=== PATIENT | female | born 1990 | race Two or more races ===

== ENCOUNTER 2024-10-20 08:42 | Emergency (ER) | payer MEDICAID, OTHER ==
[~2024-10-20] VITALS: Ht 154.9 cm; Wt 87.6 kg
[2024-10-20 08:55] VITALS: TEMP 98.5
[2024-10-20 09:04] VITALS: BP 124/82; PULSE 93; RESP 16; O2SAT 100
--- NOTE | 2024-10-20 09:17 | ED.PDOC ---
Musculoskeletal HPI Comments 34 year old female presents to the ED with chief complaint of right shoulder pain. Patient reports that she has been experiencing right shoulder pain since she had helped her potato picker a bunk bed, accidentally twisting her right shoulder 2 days ago. Patient relays that her pain was mild for the first day, but it has increased in pain and now she is unable to move her right arm without pain. Patient states her LMP was in July and she is . Patient denies any numbness, weakness, dislocation, chest pain, or fall. Chief Complaint: Upper Extremity Time Seen by MD: 09:13 Reviewed Notes: Nurses Notes, Medications, Allergies Allergies: Coded Allergies: NO KNOWN ALLERGIES (Unverified , 10/20/24) Information Source: Patient Mode of Arrival: Ambulatory Location: Right Extremity Location: Shoulder Timing: Days Prehospital treatment: None Severity: Moderate Able to Move Extremity: No Bear Weight: Fully Pain: Moderate Mechanism: Twisting Circumstances: Accident Onset of Symptoms: Spontaneous Symptoms: Pain DVT Risk Factors: NONE Last Tetanus: UTD Past Medical History PAST MEDICAL HISTORY: Denies Surgical History: Denies all surgeries NEWSPAPER PEDDLER History: No Pertinent NEWSPAPER PEDDLER History Family History Family History: Reviewed,noncontributory to illness Social History Smoker: Non-Smoker Alcohol: Denies ETOH Use Drugs: Denies Drug Use Lives In: Home Constitutional: denies: chills, diaphoresis, fatigue, fever, malaise, sweats, weakness, others EENTM: denies: blurred vision, double vision, ear bleeding, ear discharge, ear drainage, ear pain, ear ringing, eye pain, eye redness, hearing loss, mouth pain, mouth swelling, nasal discharge, nose bleeding, nose congestion, nose pain, photophobia, tearing, throat pain, throat swelling, voice changes, others Respiratory: denies: cough, hemoptysis, orthopnea, SOB at rest, shortness of breath, SOB with excertion, stridor, wheezing, others Cardiovascular: denies: chest pain, dizzy spells, diaphoresis, Dyspnea on exertion, edema, irregular heart beat, left arm pain, lightheadedness, palpitations, PND, syncope, others Gastrointestinal: denies: abdomen distended, abdominal pain, blood streaked bowels, constipated, diarrhea, dysphagia, difficulty swallowing, hematemesis, melena, nausea, poor appetite, poor fluid intake, rectal bleeding, rectal pain, vomiting, others Genitourinary: denies: abnormal vagina bleeding, burning, dyspareunia, dysuria, flank pain, frequency, hematuria, incontinence, pain, , vagina discharge, urgency, others Neurological: denies: dizziness, fainting, headache, left sided numbness, left sided weakness, numbness, paresthesia, pre-existing deficit, right sided numbness, right sided weakness, seizure, speech problems, tingling, tremors, weakness, others Musculoskeletal: reports: others (Rt shoulder pain); denies: back pain, gout, joint pain, joint swelling, muscle pain, muscle stiffness, neck pain Integumetry: denies: bruises, change in color, change in hair/nails, dryness, laceration, lesions, lumps, rash, wounds, others Allergic/Immunocompromised: denies: Difficulty Healing, Frequent Infections, Hives, Itching, others Hematologic/Lymphatic: denies: anemia, blood clots, easy bleeding, easy bruising, swollen glands, others Endocrine: denies: excessive hunger, excessive sweating, excessive thirst, excessive urination, flushing, intolerance to cold, intolerance to heat, unexplained weight gain, unexplained weight loss, others Psychiatric: denies: anxiety, bipolar disorder, depression, hopeless, panic disorder, schizophrenia, sleepless, suicidal, others All Other Systems: Reviewed and Negative Physical Exam General Appearance: Moderate Distress, Normal HEENT: Normal ENT Inspection, PERRL/EOMI Neck: Full Range of Motion, Non-Tender, Normal, Normal Inspection Respiratory: Chest Non-Tender, Lungs Clear, No Accessory Muscle Use, No Respiratory Distress, Normal Breath Sounds Cardiovascular: No Edema, No JVD, No Murmur, No Gallop, Normal Peripheral Pulses, Regular Rate/Rhythm Breast Exam: Deferred Gastrointestinal: No Organomegaly, Non Tender, No Pulsatile Mass, Normal Bowel Sounds, Soft Genitalia: Deferred Pelvic: Deferred Rectal: Deferred Extremities: Decreased range of motion (Right upper extremity), No calf tenderness, Normal capillary refill, Non-tender, No pedal edema Musculoskeletal : Apperance: Normal Neurologic: Alert, coiled tubing operator II-XII nml as Tested, No Motor Deficits, Normal Affect, Normal Mood, No Sensory Deficits Cerebellar Function: Normal Reflexes: Normal Skin: Dry, Normal Color, Warm Peripheral Pulses: 3+ Radial (R), 3+ Radial (L) Lymphatic: No Adenopathy Was a procedure done? Was a procedure done?: No Differential Diagnosis EXT Differential Diagnosis: Sprain, Strain X-Ray, Labs, Meds, VS Vital Signs Date Time Temp Pulse Resp B/P (MAP) Pulse Ox O2 Delivery O2 Flow Rate FiO2 10/20/24 09:04 98.5 93 16 124/82 (96) 100 10/20/24 08:55 98.5 93 16 124/82 (96) 100 98.5 10/20/24 08:55 93 16 100 Room Air Lab Test 10/20/24 09:01 Range/Units Urine Test Negative Negative Patient alert. Complaining of right upper extremity pain. Vitals stable. Answering all questions. Explained to the patient. Was told to follow up with her primary care physician. Was told to come back if there is any problem. Time of 1ST Reevaluation: 10:13 Reevaluation 1ST: Unchanged Patient Education/Counseling: Diagnosis, Treatment Family Education/Counseling: No Family Present Departure 1 Departure Time of Disposition: 09:24 Impression: Primary Impression: Muscle strain Disposition: 01 HOME / SELF CARE / HOMELESS Condition: Good Discharged With: Self Critical Care Note Critical Care Time?: No Stability Stability form required: No Heart Score Heart Score: Heart Score Response (Comments) Value History N/A 0 EKG N/A 0 Age N/A 0 Risk Factors N/A 0 Troponin N/A 0 Total 0 I personally scribed for BRIANNE ABDI MD ([email or web address]) on 10/20/24 at 09:17. Electronically submitted by Kevin Arrington ([email or web address]). BRIANNE ABDI MD Oct 20, 2024 09:17
--- NOTE | 2024-10-20 11:11 | DVH ---
EXAM: XY R SHOULDER 2+ VIEW XRAY HISTORY: liftingpain COMPARISON: None TECHNIQUE: Four views of the right shoulder were performed. FINDINGS: No acute fracture or dislocation are identified about the right shoulder. No significant loss of sub acromial space. There are calcifications of the rotator cuff. IMPRESSION: 1. No fracture of the right shoulder. 2. Calcific rotator cuff tendinopathy.
[2024-10-20] MEDS: HYDROcodone-ACET 5/325MG TAB PO ONE (11:29)
== END 2024-10-20 11:37 | disposition home or self-care (01) ==
LOC: ER 08:42
DX: S46.811A Strain of other muscles, fascia and tendons at shoulder and upper arm level, right arm, initial encounter (principal); Z32.02 Encounter for pregnancy test, result negative; X50.0XXA Overexertion from strenuous movement or load, initial encounter; Y93.89 Activity, other specified; Y92.89 Other specified places as the place of occurrence of the external cause; Y99.8 Other external cause status
CPT/HCPCS: 73030; 81025

== ENCOUNTER 2025-01-22 21:31 | Emergency (ER) | payer MEDICAID ==
[~2025-01-22] VITALS: Ht 154.9 cm; Wt 86.9 kg
--- NOTE | 2025-01-22 21:50 | ED.PDOC ---
HPI Comments 34 y/o obese F presents with c/o chest pain, arrhythmia, intermittent shortness of breath, dizziness, lightheadedness, nausea, and vomiting for 2 weeks. Patient is a poor historian. She endorses on pain being localized in her sternum, nonradiating, 6/10 in severity, and pressure-like in quality. Describes also her "heart skipping a beat" sensation and feeling as if she's going to "pass out," lately. Reports remote history of arrhythmia diagnosis when she was in high school along with appendectomy. Denies any abdominal pain, blood in her vomit, fever, chills, or further associated symptoms. Time Seen by MD: 21:40 Reviewed Notes: Nurses Notes, Medications, Allergies Allergies: Coded Allergies: NO KNOWN ALLERGIES (Unverified , 10/20/24) Information Source: Patient Mode of Arrival: Ambulatory Severity: Moderate Timing: Weeks Past Medical History Past Medical History (Other): arrhythmia Surgical History: Appendectomy FAILURE ANALYSIS TECHNICIAN History: No Pertinent FAILURE ANALYSIS TECHNICIAN History Family History Family History: Reviewed,noncontributory to illness Social History Smoker: Non-Smoker Alcohol: Denies ETOH Use Drugs: Denies Drug Use Lives In: Home All Other Systems: Reviewed and Negative (as per HPI) Physical Exam General Appearance: Mild Distress, Obese HEENT: Normal ENT Inspection, Pharynx Normal, TMs Normal Neck: Full Range of Motion, Non-Tender, Normal, Normal Inspection Respiratory: Chest Non-Tender, Lungs Clear, No Accessory Muscle Use, No Respiratory Distress, Normal Breath Sounds Cardiovascular: No Edema, No JVD, No Murmur, No Gallop, Normal Peripheral Pulses, Tachycardia, Other (regular rhythm ) Breast Exam: Deferred Gastrointestinal: No Organomegaly, Non Tender, No Pulsatile Mass, Normal Bowel Sounds, Soft Genitalia: Deferred Pelvic: Deferred Rectal: Deferred Extremities: No calf tenderness, Normal capillary refill, Normal inspection, Normal range of motion, Non-tender, No pedal edema Musculoskeletal : Apperance: Normal Neurologic: Alert, customs consultant II-XII nml as Tested, No Motor Deficits, Normal Affect, Normal Mood, No Sensory Deficits Cerebellar Function: Normal Reflexes: Normal Skin: Dry, Normal Color, Warm Lymphatic: No Adenopathy EKG EKG : Pulse Rate (adult): 106 [place]: Normal Cardiac Rhythm: ST Block: None Hypertrophy: None ST: Normal Was a procedure done? Was a procedure done?: No CP Differential Dx Differential Diagnosis: Angina, Anxiety / Panic Attack, Electrolyte Disorder, [place], Pulmonary Embolus, Sinus Tachycardia Differential Diagnosis: Angina, Chest Wall Pain, Costochondritis, Esophageal reflux/spasm, Gastritis, Myocardial Infarction, Pericarditis, Pneumonia, Pulmonary Embolus, Other (electrolyte imbalance, dehydration ) X-Ray, Labs, Meds, VS Vital Signs Date Time Temp Pulse Resp B/P (MAP) Pulse Ox O2 Delivery O2 Flow Rate FiO2 01/22/25 22:33 82 01/22/25 21:58 98.4 89 18 125/86 (99) 98 98.4 01/22/25 21:50 106 01/22/25 21:36 106 Lab Test 01/22/25 22:41 01/22/25 21:40 Range/Units Troponin I High Sensitivity < 3 L < 3 L </=34 ng/L White Blood Count 8.7 4.4-10.8 10^3/uL Red Blood Count 5.02 4.0-5.20 10^6/uL Hemoglobin 14.4 12.2-16.2 g/dL Hematocrit 43.2 36.0-46.0 % Mean Corpuscular Volume 86.0 80.0-100.0 fL Mean Corpuscular Hemoglobin 28.6 28.0-32.0 pg Mean Corpuscular Hemoglobin Concent 33.3 32.0-36.0 g/dL Red Cell Distribution Width 13.5 11.8-14.3 % Platelet Count 396 140-450 10^3/uL Mean Platelet Volume 7.4 6.9-10.8 fL Neutrophils (%) (Auto) 52.0 37.0-80.0 % Lymphocytes (%) (Auto) 36.5 10.0-50.0 % Monocytes (%) (Auto) 7.9 0.0-12.0 % Eosinophils (%) (Auto) 2.8 0.0-7.0 % Basophils (%) (Auto) 0.8 0.0-2.0 % Neutrophils # (Auto) 4.5 1.6-8.6 10 ^3/uL Lymphocytes # (Auto) 3.2 0.4-5.4 10 ^3/uL Monocytes # (Auto) 0.7 0-1.3 10 ^3/uL Eosinophils # (Auto) 0.2 0-0.8 10 ^3/uL Basophils # (Auto) 0.1 0-0.2 10 ^3/uL Nucleated Red Blood Cells 0.2 % D-Dimer, Quantitative < 0.19 0.0-0.49 mg/L FEU Sodium Level 140 136-145 mmol/L Potassium Level 3.6 3.5-5.1 mmol/L Chloride Level 105 98-107 mmol/L Carbon Dioxide Level 26 20-31 mmol/L Anion Gap 9 5-15 Blood Urea Nitrogen 17 9-23 mg/dL Creatinine 0.85 0.550-1.02 mg/dL Glomerular Filtration Rate Calc 93 >90 mL/min BUN/Creatinine Ratio 20.0 10.0-20.0 Serum Glucose 120 H 74-106 mg/dL Calcium Level 10.0 8.7-10.4 mg/dL Total Bilirubin 0.3 0.2-1.0 mg/dL Aspartate Amino Transferase (AST) 28 13-40 U/L Alanine Aminotransferase (ALT) 42 H 7-40 U/L Alkaline Phosphatase 85 46-116 U/L Total Protein 8.0 5.7-8.2 g/dL Albumin 5.0 H 3.2-4.8 g/dL Beta HCG, Quantitative 0.6 L 1.5-4.2 mIU/mL [place] [id number] Ph: [phone] DIAGNOSTIC IMAGING Diagnostic Imaging Report : [id number] Signed PATIENT: ANNE-MARIE MCNEILL ACCT: [id number] UNIT: [id number] : 1990 LOC: ER ROOM / BED: / AGE / SEX: 34 / F ADM STATUS: REG ER SERVICE 22 ORDERING PHYSICIAN: HANNAH HUNT MD PROCEDURE(s): CXRP - CHEST PORTABLE REASON: CHEST PAIN ORDER NUMBER(s): [id number], ACCESSION NUMBER(s): [id number] CHEST RADIOGRAPH Indication: CHEST PAIN Technique: Single frontal view of the chest was obtained Comparison: None FINDINGS: Lines and Tubes: None Lungs: Clear Pleura: No effusion. No pneumothorax. Cardiomediastinal contours: Unremarkable Bones: Unremarkable IMPRESSION: Clear lungs. ATED BY: YOANA EVERETT DO DICTATED DATE/TIME: 01/22/252245 SIGNED BY: YOANA EVERETT DO SIGNED DATE/TIME: 01/22/252245 CC: Time of 1ST Reevaluation: 22:10 Reevaluation 1ST: Unchanged Patient Education/Counseling: Diagnosis, Treatment Family Education/Counseling: No Family Present Departure 1 Departure Time of Disposition: 00:28 Impression: Primary Impression: Atypical chest pain Additional Impressions: Dizziness Nausea and vomiting Disposition: 01 HOME / SELF CARE / HOMELESS Condition: Stable Critical Care Note Critical Care Time?: No Stability Stability form required: No Heart Score Heart Score: Heart Score Response (Comments) Value History Slightly Suspicious 0 EKG Normal 0 Age <45 0 Risk Factors 1 or 2 risk factors 1 Troponin Normal limit 0 Total 1 I personally scribed for HANNAH HUNT MD ([email or web address]) on 01/22/25 at 21:50. Electronically submitted by Mian Barraza ([email or web address]). I personally scribed for HANNAH HUNT MD ([email or web address]) on 01/22/25 at 23:04. Electronically submitted by Mian Barraza ([email or web address]). I personally scribed for HANNAH HUNT MD ([email or web address]) on 01/23/25 at 00:17. Electronically submitted by Mian Barraza ([email or web address]). HANNAH HUNT MD Jan 22, 2025 21:50
[2025-01-22 21:57] LABS: Basophils # (auto) 0.1 10 ^3/uL (0-0.2); Basophils % (auto) 0.8 % (0.0-2.0); Eosinophils # (auto) 0.2 10 ^3/uL (0-0.8); Eosinophils % (auto) 2.8 % (0.0-7.0); Hematocrit 43.2 % (36.0-46.0); Hemoglobin 14.4 g/dL (12.2-16.2); Lymphocytes # (auto) 3.2 10 ^3/uL (0.4-5.4); Lymphocytes % (auto) 36.5 % (10.0-50.0); Mean Corpuscular Hemoglobin 28.6 pg (28.0-32.0); Mean Corpuscular Hgb Conc. 33.3 g/dL (32.0-36.0); Monocytes # (auto) 0.7 10 ^3/uL (0-1.3); Monocytes % (auto) 7.9 % (0.0-12.0); Neutrophils # (auto) 4.5 10 ^3/uL (1.6-8.6); Nucleated Red Blood Cells % 0.2 %; Platelet Count (auto) 396 10^3/uL (140-450); Red Blood Cells 5.02 10^6/uL (4.0-5.20); Red Cell Distribution Width 13.5 % (11.8-14.3); White Blood Cell 8.7 10^3/uL (4.4-10.8)
[2025-01-22 22:16] LABS: Alkaline Phosphatase 85 U/L (46-116); Anion Gap 9 (5-15); Aspartate Aminotransferase 28 U/L (13-40); Bilirubin, Total 0.3 mg/dL (0.2-1.0); Blood Urea Nitrogen 17 mg/dL (9-23); Carbon Dioxide 26 mmol/L (20-31); Chloride 105 mmol/L (98-107); Potassium 3.6 mmol/L (3.5-5.1); Sodium 140 mmol/L (136-145)
[2025-01-22 22:22] LABS: Alanine Aminotransferase 42 U/L (7-40); Glucose 120 mg/dL (74-106)
--- NOTE | 2025-01-22 22:34 | ECG ---
[facility] Test Date: 2025-01-22 Test Time: 22:33:05 Pat Name: ANNE-MARIE MCNEILL Department: ED Room: Gender: F Solutions Delivery Consultant: DENISSE : 1990 Requested By: HANNAH HUNT Order Number: [id number] Reading MD: Martir Landon Measurements Intervals [place] Rate: 82 P: 64 FL: 142 QRS: 73 QRSD: 73 T: -23 QT: 359 QTc: 420 Interpretive Statements Sinus rhythm Borderline repolarization abnormality Electronically Signed On 01-25-2025 17:06:26 PDT by Martir Landon Please click the below link to view image of tracing.
--- NOTE | 2025-01-22 22:48 | DVH ---
CHEST RADIOGRAPH Indication: CHEST PAIN Technique: Single frontal view of the chest was obtained Comparison: None FINDINGS: Lines and Tubes: None Lungs: Clear Pleura: No effusion. No pneumothorax. Cardiomediastinal contours: Unremarkable Bones: Unremarkable IMPRESSION: Clear lungs.
[2025-01-23 01:01] VITALS: BP 115/71; PULSE 73; RESP 18; TEMP 98.7; O2SAT 98
--- NOTE | 2025-01-23 12:01 | ECG ---
[facility] Test Date: 2025-01-22 Test Time: 21:36:45 Pat Name: ANNE-MARIE MCNEILL Department: ER Room: Gender: F Network Applications Specialist: : 1990 Requested By: HANNAH HUNT Order Number: [id number] Reading MD: Martir Landon Measurements Intervals [place] Rate: 106 P: 70 ID: [id number] QRS: 71 QRSD: 71 T: -19 QT: 328 QTc: 436 Interpretive Statements Sinus tachycardia Borderline repolarization abnormality Electronically Signed On 01-25-2025 17:06:23 PDT by Martir Landon Please click the below link to view image of tracing.
== END 2025-01-23 01:01 | disposition home or self-care (01) ==
LOC: ER 21:31
DX: R07.89 Other chest pain (principal); R10.2 Pelvic and perineal pain; R42 Dizziness and giddiness; R11.2 Nausea with vomiting, unspecified; R06.02 Shortness of breath; E66.9 Obesity, unspecified; Z90.49 Acquired absence of other specified parts of digestive tract
CPT/HCPCS: 36415; 71045; 80053; 84484; 84702; 85025; 85379; 93005

== ENCOUNTER 2025-06-18 12:41 | Emergency (ER) | payer MEDICAID, SELFPAY ==
[~2025-06-18] VITALS: Ht 154.9 cm; Wt 87.5 kg
--- NOTE | 2025-06-18 13:47 | ED.PDOC ---
Eye-HPI HPI Comments A 34 YEAR OLD FEMALE PRESENTS TO THE ED WITH COMPLAINT OF LEFT EAR PAIN AND DENTAL PAIN. PATIENT STATES SHE HAS BEEN EXPERIENCING DENTAL PAIN ON THE LEFT LOWER SIDE OF HER MOUTH FOR THE PAST 3 WEEKS AND BEGAN TO EXPERIENCE LEFT EAR PAIN OVER THE PAST 3 DAYS. PATIENT DENIES FEVER, CHILLS, SHORTNESS OF BREATH, CHEST PAIN, ABDOMINAL PAIN, NAUSEA, VOMITING, HEADACHE, OR OTHER COMPLAINTS. NO OTHER SYMPTOMS OR MODIFYING FACTORS AT THIS TIME. PATIENT IS ALERT, ORIENTED X 4, AND HAS STEADY GAIT. Chief Complaint: Flu like Time Seen by MD: 12:53 Primary Care Provider: NONE Reviewed Notes: Nurses Notes, Medications, Allergies Allergies: Coded Allergies: NO KNOWN ALLERGIES (Unverified , 10/20/24) Home Meds Active Scripts Ibuprofen (Ibuprofen) 800 Mg Tab, 1 TAB PO TID, #24 TAB Prov:EDIL MUÑIZ 06/18/25 Prednisone (Prednisone) 20 Mg Tab, 60 MG PO DAILY, #15 TAB Prov:EDIL MUÑIZ 06/18/25 Amoxicillin & Pot Clavulanate (AUGMENTIN TABLET) 875 Mg Tb, 875 MG PO BID for 10 Days, #20 TAB Prov:EDIL MUÑIZ 06/18/25 Information Source: Patient Mode of Arrival: Ambulatory Timing: Days Duration: Since onset, Days Prehospital treatment: None Quality: Pain, Red Lids: Normal Conjunctiva: Normal Cornea: Normal Pupils: Normal EOM: Normal Fundus: Normal Slit lamp exam: Normal Anterior chamber: Normal Mouth Location: Left, Lower, Tooth/Teeth, Gums Mouth: Left, Lower, Normal ENT Ear Exam: Normal, Red, Bulging, Dull, Normal Nose: Normal Sinuses: Normal Oropharynx: Normal Onset: Spontaneous Throat Exposed to: None History of: None Last Tetanus: Unknown Modifying factors: Nothing Associated signs and symptoms: Ear Pain, Tooth Pain Past Medical History PAST MEDICAL HISTORY: Anxiety Surgical History: Appendectomy MOTIVATIONAL SPEAKER History: No Pertinent MOTIVATIONAL SPEAKER History Family History Family History: Reviewed,noncontributory to illness Social History Smoker: Non-Smoker Alcohol: Denies ETOH Use Drugs: Denies Drug Use Lives In: Home Constitutional: denies: chills, diaphoresis, fatigue, fever, malaise, sweats, weakness, others EENTM: reports: ear pain (LEFT EAR PAIN), mouth pain (LEFT LOWER DENTAL PAIN); denies: blurred vision, double vision, ear bleeding, ear discharge, ear drainage, ear ringing, eye pain, eye redness, hearing loss, mouth swelling, na bk discharge, nose bleeding, nose congestion, nose pain, photophobia, tearing, throat pain, throat swelling, voice changes, others Respiratory: denies: cough, hemoptysis, orthopnea, SOB at rest, shortness of breath, SOB with excertion, stridor, wheezing, others Cardiovascular: denies: chest pain, dizzy spells, diaphoresis, Dyspnea on exe rtion, edema, irregular heart beat, left arm pain, lightheadedness, palpitations, PND, syncope, others Gastrointestinal: denies: abdomen distended, abdominal pain, blood streaked bowels, constipated, diarrhea, dysphagia, difficulty swallowing, hematemesis, melena, nausea, poor appetite, poor fluid intake, rectal bleeding, rectal pain, vomiting, others Genitourinary: denies: abnormal vagina bleeding, burning, dyspareunia, dysuria, flank pain, frequency, hematuria, incontinence, pain, , vagina discharge, urgency, others Neurological: denies: dizziness, fainting, headache, left sided numbness, left sided weakness, numbness, paresthesia, pre-existing deficit, right sided numbness, right sided weakness, seizure, speech problems, tingling, tremors, weakness, others Musculoskeletal: denies: back pain, gout, joint pain, joint swelling, muscle pain, muscle stiffness, neck pain, others Integumetry: denies: bruises, change in color, change in hair/nails, dryness, laceration, lesions, lumps, rash, wounds, others Allergic/Immunocompromised: denies: Difficulty Healing, Frequent Infections, Hives, Itching, others Hematologic/Lymphatic: denies: anemia, blood clots, easy bleeding, easy bruising, swollen glands, others Endocrine: denies: excessive hunger, excessive sweating, excessive thirst, excessive urination, flushing, intolerance to cold, intolerance to heat, unexplained weight gain, unexplained weight loss, others Psychiatric: denies: anxiety, bipolar disorder, depression, hopeless, panic disorder, schizophrenia, sleepless, suicidal, others All Other Systems: Reviewed and Negative Physical Exam General Appearance: No Apparent Distress, Obese HEENT: PERRL/EOMI, Pharynx Normal, TM Abnormal (L) (ERYTHEMA AND DULL WITH MILD EFFUSION OF LEFT TM, NO BLEEDING AND BLOOD CLOTS. ), Other (ERYTHEMA AND SWELLING ON LEFT LOWER GUM AROUND TOOTH, NO FACIAL SWELLING. ) Neck: Full Range of Motion, Non-Tender, Normal, Normal Inspection Respiratory: Chest Non-Tender, Lungs Clear, No Accessory Muscle Use, No Respiratory Distress, Normal Breath Sounds Cardiovascular: No Edema, No JVD, No Murmur, No Gallop, Normal Peripheral Pulses, Regular Rate/Rhythm Breast Exam: Deferred Gastrointestinal: No Organomegaly, Non Tender, No Pulsatile Mass, Normal Bowel Sounds, Soft Genitalia: Deferred Pelvic: Deferred Rectal: Deferred Extremities: No calf tenderness, Normal capillary refill, Normal inspection, Normal range of motion, Non-tender, No pedal edema Musculoskeletal : Apperance: Normal Neurologic: Alert, supervisor shuttle fitting II-XII nml as Tested, No Motor Deficits, Normal Affect, Normal Mood, No Sensory Deficits Cerebellar Function: Normal Reflexes: Normal Skin: Dry, Normal Color, Warm Peripheral Pulses: 2+ carotid (R), 2+ carotid (L) Lymphatic: No Adenopathy Was a procedure done? Was a procedure done?: No EENT DIFF Eye: N/A Ear: Cerumen Impaction, Otitis Externa, Otitis Media, Dental, Pharyngitis, Sinusitis Nose: N/A Mouth: N/A Sore Throat: N/A X-Ray, Labs, Meds, VS Vital Signs Date Time Temp Pulse Resp B/P (MAP) Pulse Ox O2 Delivery O2 Flow Rate FiO2 06/18/25 12:42 98.2 77 16 121/63 100 98.2 Current Medications Medications (Trade) Dose Ordered Sig/Vanda Route Start Time Stop Time Status Last Admin Acetaminophen/ Hydrocodone Bitart (Aptos 10/325MG Tab) 1 tab ONCE ONCE PO 06/18/25 13:45 06/18/25 13:46 DC 06/18/25 13:50 X-Ray, Labs, Meds, VS Comment EXTERNAL MEDICAL RECORDS REVIEWED: [NONE] INDEPENDENT HISTORIANS: [NONE] SOCIAL DETERMINANTS OF HEALTH: [NONE] LABS ORDERED: NONE REVIEWED AND INTERPRETED RESULTS: NONE IMAGING ORDERED: NONE TREATMENTS ORDERED: NORCO 5/325MG PO PROCEDURES PERFORMED: NONE CRITICAL CARE TIME: NONE I HAVE DISCUSSED THE PATIENT WITH THE ATTENDING PHYSICIAN DR. ABDI AND HE AGREES WITH THE PATIENT'S PLAN OF CARE AND DISPOSITION. BASED ON HISTORY OF PRESENT ILLNESS, AND PHYSICAL EXAM, PATIENT WILL BE DISCHARGED HOME. DISCUSSED PLAN FOR DISCHARGE HOME WITH RX [AUGMENTIN, PREDNISO NE, AND IBUPROFEN 800 MG]. MEDICATION WARNINGS GIVEN. SHARED DECISION MAKING: PATIENT INSTRUCTED TO FOLLOW UP WITH PRIMARY CARE PROVIDER IN 1-2 DAYS FOR RE-EVALUATION OF SYMPTOMS. PATIENT VERBALIZES UNDERSTANDING TO RETURN TO ED FOR NEW OR WORSENING SYMPTOMS OR IF FOLLOW UP WITH PCP CANNOT BE OBTAINED. PATIENT FEELS COMFORTABLE GOING HOME AT THIS TIME. ALL QUESTIONS ADDRESSED AT TIME OF DISCHARGE. Time of 1ST Reevaluation: 14:20 Reevaluation 1ST: Improved Patient Education/Counseling: Diagnosis, Treatment, Need For Follow Up Family Education/Counseling: Diagnosis, Treatment, Need For Follow Up Medical Screening: No EMC Exist At This Time SEPSIS Sepsis Screen Date sepsis recognized/suspect: Jun 18, 2025 Time Sepsis recognized/suspect: 1245 Recent Procedure: No On Antibiotic Therapy: No Respiratory Rate >20: No Heart Rate >90: No Temp<36 C (96.8 F) or >38.3 C: No SBP <90 or MAP <65 mmHG: No New Acute Mental Status Change: No Is the patient on CPAP, BIPAP,: No Vital Signs Date Time Temp Pulse Resp B/P (MAP) Pulse Ox O2 Delivery O2 Flow Rate FiO2 06/18/25 12:42 98.2 77 16 121/63 100 98.2 Medications Medications Dose Ordered Sig/Vanda Route Start Time Stop Time Status Last Admin Dose Admin Acetaminophen/ Hydrocodone Bitart 1 tab ONCE ONCE PO 06/18/25 13:45 06/18/25 13:46 DC 06/18/25 13:50 Departure 1 Departure Time of Disposition: 14:20 Impression: Primary Impression: Otitis media of left ear Qualified Codes: H65.02 - Acute serous otitis media, left ear Additional Impression: Dental infection Disposition: HOME / SELF CARE / HOMELESS Condition: Stable Additional Instructions: FOLLOW-UP WITH PCP IN 1 TO 2 DAYS. TAKE MEDICATIONS PRESCRIBED. RETURN TO ED FOR ANY NEW OR WORSENING SYMPTOMS. e-Prescriptions Ibuprofen (Ibuprofen) 800 Mg Tab 1 TAB PO TID, #24 TAB Prov: EDIL MUÑIZ 06/18/25 Prednisone (Prednisone) 20 Mg Tab 60 MG PO DAILY, #15 TAB Prov: EDIL MUÑIZ 06/18/25 Amoxicillin & Pot Clavulanate (AUGMENTIN TABLET) 875 Mg Tb 875 MG PO BID for 10 Days, #20 TAB Prov: EDIL MUÑIZ 06/18/25 Discharged With: Self Critical Care Note Critical Care Time?: No Stability Stability form required: No I personally scribed for EDIL MUÑIZ ([email or web address]) on 06/18/25 at 13:47. Electronically submitted by Jose Mortensen ([email or web address]). EDIL MUÑIZ Jun 18, 2025 13:47
[2025-06-18] MEDS ORDERED: AUG875T PO (13:48)
[2025-06-18] MEDS ORDERED: IBUP-1456 PO (13:48)
[2025-06-18] MEDS ORDERED: PRED20TA2 PO (13:48)
[2025-06-18] MEDS: HYDROcodone-ACET 10/325MG TAB PO ONE (13:50)
[2025-06-18 14:06] VITALS: BP 121/63; PULSE 77; RESP 16; TEMP 98.2; O2SAT 100
== END 2025-06-18 14:07 | disposition home or self-care (01) ==
LOC: ER 12:43
DX: H65.02 Acute serous otitis media, left ear (principal); F41.9 Anxiety disorder, unspecified; K04.7 Periapical abscess without sinus; Z90.49 Acquired absence of other specified parts of digestive tract